=== PATIENT | female | born 2005 | race Caucasian/White ===

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

== ENCOUNTER 2025-07-02 11:15 | Emergency (ER) | payer OTHER, SELFPAY ==
[2025-07-02 11:22] VITALS: BP 135/71; PULSE 75; RESP 16; TEMP 36.8; O2SAT 99
--- NOTE | 2025-07-02 12:41 | ED.FEMALEGU ---
HPI - Female Genitourinary General Chief complaint: Urogenital-Female Stated complaint: Urinary Problem Time Seen by Provider: 07/02/25 12:10 Source: patient, RN notes reviewed and old records reviewed Mode of arrival: ambulatory Limitations: no limitations History of Present Illness HPI Narrative: 19 year old female who presents to [facility] with complaints of UTI symptoms since Monday which includes burning with urination, frequency and urgency and pain at end of stream of urine, some vaginal burning. Patient reports that she also has some cough and congestion which also started on Monday.Patient reports that she took Azo yesterday for her urinary symptoms and she has been taking DayQuil for her cough and congestion. Patient reports no fevers, chills, or sweats, denies any nausea vomitjng or any diarrhea. MD elicited complaint: UTI Pertinent past history: other (UTI) Onset (ago): day(s) (3) Location of symptoms: urethra and vaginal Severity: moderate Quality of pain: burning and aching Vaginal discharge: none Vaginal bleeding: none Urinary symptoms: Dysuria, Urgency and Frequency Treatment prior to arrival: OTC urinary analgesics and other (DayQuil) Related Data Allergies Allergy/AdvReac Type Severity Reaction Status Date / Time No Known Allergies Allergy Verified 07/02/25 11:33 Review of Systems Review of Systems: CONSTITUTIONAL: Denies fever, chills, or sweats. CARDIOVASCULAR: Denies chest pain, palpitations, or edema. RESPIRATORY: reports cough and congestion without dyspnea GASTROINTESTINAL: Denies abdominal pain, nausea, vomiting, or diarrhea. GENITOURINARY: Reports dysuria, frequency, urgency. Denies flank pain or hematuria. SKIN: Denies rash or itching. MUSCULOSKELETAL: Denies back pain or myalgia. Denies CVA tenderness NEUROLOGIC: Denies headache All systems reviewed & are unremarkable except as noted in HPI and below PMFSH Past Medical History Medical History (Updated 07/03/25 @ 11:50 by Nga Castellanos APRN) Strep throat Urinary tract infection Social History Social History (Updated 07/03/25 @ 11:43 by Nga Castellanos APRN) Smoking status: Never smoker Alcohol intake: unknown Substance use type: does not use Gender identity (if verbalized by the patient): Female Comments At time of signature, agree with nursing past medical, surgical, social and family history. There is no relevant family history pertinent to the presenting complaint Exam Narrative: GENERAL: Well-appearing, well-nourished, and in no acute distress. HEAD: Normocephalic, atraumatic. NECK: Supple.no lymphadenopathy CHEST: Clear to auscultation. No respiratory distress. SAO2 99% on room air cough noted which is non-productive HEART: Regular rate and rhythm. No murmur heard. Normal peripheral pulses. ABDOMEN: Soft, nontender, nondistended, normal active bowel sounds. No CVA tenderness, Patient reports urine frequency, urgency, and painful urination. EXTREMITIES: Normal range of motion. No edema. SKIN: Warm, dry, no rash. NEURO: No focal deficits. Alert and oriented x3. Course Course Level of Care: Express Care Visit Vital Signs Vital signs: Vital Signs Temperature 36.8 C 07/02/25 11:22 Pulse Rate 75 07/02/25 11:22 Respiratory Rate 16 07/02/25 11:22 Blood Pressure 135/71 07/02/25 11:22 Pulse Oximetry 99 07/02/25 11:22 Oxygen Delivery Room Air 07/02/25 11:22 Temperature 36.8 C 07/02/25 11:22 Pulse Rate 75 07/02/25 11:22 Respiratory Rate 16 07/02/25 11:22 Blood Pressure 135/71 07/02/25 11:22 Pulse Oximetry 99 07/02/25 11:22 Oxygen Delivery Room Air 07/02/25 11:22 [facility] Narrative Medical decision making narrative: 19 year old female with UTI symptoms od burning frequency,urgency, and pain at end of stream with 1+ Leukocytes in urine dip noted. Patient also reports cough with some congestion and using OTC cold medication for symptoms. Patient prescribed antibiotic to treat UTI and patient recommended to take OTC antihistamine, decongestants and cough medication for URI symptoms. Patient is nontoxic and appropriate for express care visit. Anticipatory guidance and reasons to seek care in ED reviewed with understanding voiced. Differential Diagnosis Differential Diagnosis: Differential diagnostic considerations for female urogenital? issues include urinary tract infection, bacterial vaginosis, cervicitis, ovarian cyst, vaginitis, STI exposure, ovarian torsion, ectopic , cyst of Bartholin?s gland, cystitis, dysmenorrhea., URI symptoms of cough and congestion Lab Data [facility] Lab Attestation statement: I personally reviewed the patient's lab results. Lab results narrative: urine dip reviewed with 1+ leukocytes and urinary symptoms Labs: Lab Results 07/02/25 Range/Units 12:51 POC Urine Color Yellow POC Urine Clarity Clear POC Urine pH 7.0 POC Ur Specif [place] 1.015 POC Urine Protein Negative (Negative) POC Ur Glucose (UA) Negative (Negative) POC Urine Ketones Negative (Negative) POC Urine Blood Negative (Negative) POC Urine Nitrite Negative (Negative) POC Urine Bilirubin Negative (Negative) POC Urine Urobilinogen 0.2 POC U Leukocyte Esteras 1+ (Negative) reviewed Critical Care Time Critical Care Time Critical Care Time: No Discharge Plan Discharge Clinical Impression: URI, acute Urinary tract infection Qualifiers: Urinary tract infection type: site unspecified Hematuria presence: without hematuria Qualified Code(s): N39.0 - Urinary tract infection, site not specified Patient Disposition: Home Condition: Stable Instructions: Antibiotic Form, Urinary Tract Infection in Women (ED), Upper Respiratory Infection (DC) Additional Instructions: Increase fluids especially cranberry juice and water Avoid caffeine and carbonated beverages Antibiotic as directed Tylenol/ibuprofen for pain or fever Follow-up with her primary care provider if further problems or concerns Recheck if you have fever over 101, nausea and vomiting. Zyrtec Claritin or Emilia daily If your symptoms persist, change or worsen significantly before you can contact your personal physician then please, without delay, go to the emergency department for further evaluation. Follow-up with PCP in 7-10 days or sooner if needed Follow up with PCP soon in regards to your blood pressure which is elevated above threshold for referral. Blood pressure above 120/80 may indicate pre-hypertension.135/71 Patient Language: [place] Prescriptions: New amoxicillin-pot clavulanate 875-125 mg tablet 1 tablet PO Q12H Qty: 14 0RF Follow-up/Referrals: Harms,Olvin Calderon M.D. [Primary Care Provider] Time of Disposition: 12:45 Quality Mallorie Coma Scale Eyes: Open Verbal: Oriented and Alert Motor: Follows Commands [place] Coma Total Score: 15
[2025-07-02 12:55] LABS: EDUAAPPEAR Clear; EDUABILI Negative (Negative); EDUABLOOD Negative (Negative); EDUACOLOR1 Yellow; EDUAGLUCOSE Negative (Negative); EDUAKETONE Negative (Negative); EDUALEUKO 1+ (Negative); EDUANITRATE Negative (Negative); EDUAPH 7.0; EDUAPROTEIN Negative (Negative); EDUASPGRAVITY 1.015; EDUAUROBILI 0.2
== END 2025-07-02 12:50 | disposition home or self-care (01) ==
PROVIDERS: Emergency Provider Registered Nurse; PCP Family Medicine
DX: J06.9 Acute upper respiratory infection, unspecified (principal); N39.0 Urinary tract infection, site not specified
CPT/HCPCS: 81003; 87077; 87086; 87186; 99213; G0463